=== PATIENT | male | born 1990 | race Hispanic/Latino ===

== ENCOUNTER 2021-12-15 08:01 | Emergency (ER) | payer BC ==
[2021-12-15 08:25] LABS: Absolute Lymphocytes (CBC) 3.4 K/uL (0.7-4.9); Hematocrit 42.7 % (39.6-49.0); Lymphocytes % 39.4 % (15.3-44.8); MCV 89.5 fL (80-100); MPV 7.9 fL (7.6-11.3); RBC Red Blood Cell Count 4.77 M/uL (4.33-5.43)
[2021-12-15 08:48] LABS: Potassium 3.9 mmol/L (3.5-5.1)
--- NOTE | 2021-12-15 09:21 | RAD REPORT ---
EXAM DESCRIPTION: RAD - Chest Single View - 12/15/2021 8:43 am CLINICAL HISTORY: CHEST PAIN COMPARISON: None TECHNIQUE: AP portable chest image was obtained 12/15/2021 8:43 am . FINDINGS: Lungs are clear. Heart and vasculature are normal. No measurable pleural effusion and no p neumothorax. No acute bony abnormality seen. No acute aortic findings suspected. IMPRESSION: No acute cardiopulmonary process.
--- NOTE | 2021-12-15 09:33 | EDPHYS ---
Physician Documentation [facility] Name: Pro Guillermo Age: 31 yrs Sex: Male : 1990 Arrival Date: 12/15/2021 Time: 08:02 Bed 16 Private MD: Morgan Lindsay B ED Physician Fabio Pak HPI: 12/15 10:43 This 31 yrs old Male presents to ER via Ambulatory with complaints of Chest kb Tightness, Dizziness, Palpitations. 10:43 The patient or guardian reports chest pain that is located primarily in the anterior kb chest wall, bilaterally. The pain does not radiate. Associated signs and symptoms: Pertinent positives: palpitations. The chest pain is described as tightness. Duration: The patient or guardian reports a single episode. Modifying factors: The symptoms are alleviated by nothing. the symptoms are aggravated by nothing. Severity of pain: At its worst the pain was moderate in the emergency department the pain is unchanged. The patient has not experienced similar symptoms in the past. The patient has not recently seen a physician. Pt reports he started feeling like his heart was racing after drinking coffee this morning, then felt some chest tightness. States the symptoms got worse the more he thought about it so he came in to get checked out. Historical: - Allergies: 08:16 No Known Allergies; iw - Home Meds: 08:16 None [Active]; iw - PMHx: 08:16 None; iw - Immunization history:: Adult Immunizations up to date. - Social history:: Smoking status: Patient denies any tobacco usage or history of. ROS: 10:42 Constitutional: Negative for fever, chills, and weight loss. kb 10:42 Cardiovascular: Positive for chest pain, palpitations, Negative for edema, orthopnea, paroxysmal nocturnal dyspnea. 10:42 All other systems are negative. Exam: 08:21 Constitutional: This is a well developed, well nourished patient who is awake, alert, kb and in no acute distress. Head/Face: Normocephalic, atraumatic. ENT: Moist Mucous membranes Cardiovascular: Regular rate and rhythm with a normal S1 and S2. No gallops, murmurs, or rubs. No pulse deficits. Respiratory: Respirations even and unlabored. No increased work of breathing. Talking in full sentences Abdomen/GI: Soft, non-tender. No distention Skin: Warm, dry with normal turgor. Normal color. MS/ Extremity: Pulses equal, no cyanosis. Neurovascular intact. Full, normal range of motion. Neuro: Awake and alert, GCS 15, oriented to person, place, time, and situation. Moves all extremities. Normal gait. Psych: Awake, alert, with orientation to person, place and time. Behavior, mood, and affect are within normal limits. 08:21 ECG was reviewed by the Attending Physician. Vital Signs: 08:15 BP 143 / 101; Pulse 93; Resp 16; Pulse Ox 99% on R/A; iw 09:00 BP 119 / 72; Pulse 76; Resp 16; Pulse Ox 100% ; jh6 09:32 BP 116 / 82; kb 09:36 BP 108 / 70; Pulse 80; Resp 16; Temp 97.6; Pulse Ox 100% ; Pain 0/10; jh6 MDM: 08:04 Patient medically screened. kb 09:23 Data reviewed: vital signs, nurses notes. Data interpreted: Pulse oximetry: on room air kb is 99 %. Interpretation: normal. 09:23 HEART Score: History: Slightly Suspicious (0), ECG: Normal (0), Age: < or = 45 years kb (0), Risk Factors: 1 or 2 risk factors (1), [Hypertension] Troponin: < or = 1 x Normal Limit (0). 09:32 Counseling: I had a detailed discussion with the patient and/or guardian regarding: the kb historical points, exam findings, and any diagnostic results supporting the discharge/admit diagnosis, lab results, radiology results, the need for outpatient follow up, a family practitioner, to return to the emergency department if symptoms worsen or persist or if there are any questions or concerns that arise at home. ED course: Pt states he is feeling better now. Symptoms have resolved. . 12/15 08:11 Order name: Basic Metabolic Panel; Complete Time: 08:50 kb 12/15 08:11 Order name: CBC with Diff; Complete Time: 08:50 kb 12/15 08:11 Order name: Troponin HS; Complete Time: 08:50 kb 12/15 08:11 Order name: XRAY Chest (1 view); Complete Time: 09:23 kb 12/15 08:11 Order name: EKG; Complete Time: 08:12 kb 12/15 08:11 Order name: Cardiac monitoring 12/15 08:11 Order name: EKG - Nurse/Tech 12/15 08:11 Order name: IV Saline Lock 12/15 08:11 Order name: Labs collected and sent 12/15 08:11 Order name: O2 Per Protocol 12/15 08:11 Order name: O2 Sat Monitoring EC:21 Rate is 73 beats/min. Rhythm is regular. QRS [place] is Normal. OK interval is normal at kb 144 msec. QRS interval is normal at 86 msec. QT interval is normal at 366 msec. Administered Medications: No medications were administered Disposition: 22:27 Co-signature as Attending Physician, Fabio Pak DO I was immediately available on-site ms3 in the Emergency Department for consultation in the care of the patient. . Disposition Summary: 12/15/21 09:32 Discharge Ordered Location: Home kb Condition: Stable kb Diagnosis - Palpitations kb Followup: kb - With: Emergency Department - When: As needed - Reason: Worsening of condition Followup: kb - With: Private Physician - When: 2 - 3 days - Reason: Recheck today's complaints, Continuance of care, Re-evaluation by your physician Discharge Instructions: - Discharge Summary Sheet kb - Nonspecific Chest Pain, Adult, [id number] kb - Hypertension, Adult, [id number] kb - Palpitations, [id number] kb Forms: - Medication Reconciliation Form kb - Thank You Letter kb - Antibiotic Education kb - Prescription Opioid Use kb Signatures: Dispatcher [employer] EDAngeal Adams, CRYSTAL-C LIGHT ARMORED RECONNAISSANCE OFFICER-aCndi Alvarez, RN Fabio Vu DO DO ms3 Jennifer Meyers RN RN jh6
--- NOTE | 2021-12-15 09:33 | ER ---
Nurse's Notes [facility] Name: Pro Guillermo Age: 31 yrs Sex: Male : 1990 Arrival Date: 12/15/2021 Time: 08:02 Bed 16 Private MD: Morgan Lindsay B Diagnosis: Palpitations Presentation: 12/15 08:15 Chief complaint: Patient states: chest tightness, dizziness palpitations since 0700 iw this morning. Coronavirus screen: At this time, the client does not indicate any symptoms associated with coronavirus-19. Ebola Screen: Patient negative for fever greater than or equal to 101.5 degrees Fahrenheit, and additional compatible Ebola Virus Disease symptoms Patient denies exposure to infectious person. Patient denies travel to an Ebola-affected area in the 21 days before illness onset. No symptoms or risks identified at this time. Initial Sepsis Screen: Does the patient meet any 2 criteria? No. Patient's initial sepsis screen is negative. Does the patient have a suspected source of infection? No. Patient's initial sepsis screen is negative. Risk Assessment: Do you want to hurt yourself or someone else? Patient reports no desire to harm self or others. Onset of symptoms was December 15, 2021. 08:15 Method Of Arrival: Ambulatory iw 08:15 Acuity: VAHID 3 iw Historical: - Allergies: 08:16 No Known Allergies; iw - Home Meds: 08:16 None [Active]; iw - PMHx: 08:16 None; iw - Immunization history:: Adult Immunizations up to date. - Social history:: Smoking status: Patient denies any tobacco usage or history of. Screenin:20 Abuse screen: Denies threats or abuse. Denies injuries from another. [facility] 08:20 Nutritional screening: No deficits noted. Tuberculosis screening: No symptoms or risk [facility] factors identified. Fall Risk IV access (20 points). Assessment: 08:30 General: Appears in no apparent distress. Behavior is calm, cooperative. 6 08:30 Pain: Denies pain. 6 08:30 Neuro: Level of Consciousness is awake, alert, obeys commands, Oriented to person, 6 place, time, situation, Reports dizziness, since this am but only when he was leaning forward. 08:30 Pain: Pain began suddenly, 2 hours ago. jh6 09:36 Reassessment: Patient and/or family updated on plan of care and expected duration. Pain jh6 level reassessed. Patient is alert, oriented x 3, equal unlabored respirations, skin warm/dry/pink. Patient denies pain at this time. Patient states feeling better. Pain: Denies pain. Cardiovascular: No deficits noted. 09:40 Reassessment: pt stating that he is feeling much better no dizziness noted with jh6 standing or leaning forward. Vital Signs: 08:15 BP 143 / 101; Pulse 93; Resp 16; Pulse Ox 99% on R/A; iw 09:00 BP 119 / 72; Pulse 76; Resp 16; Pulse Ox 100% ; jh6 09:32 BP 116 / 82; kb 09:36 BP 108 / 70; Pulse 80; Resp 16; Temp 97.6; Pulse Ox 100% ; Pain 0/10; jh6 ED Course: 08:02 Patient arrived in ED. mr 08:02 Morgan Lindsay MD is Private Physician. mr 08:04 [facility]C [facility] kb 08:04 Fabio Pak DO is Attending Physician. kb 08:15 Triage completed. iw 08:15 Arm band placed on. iw 08:30 Bed in low position. Call light in reach. Side rails up X 1. jh6 08:30 Client placed on continuous cardiac and pulse oximetry monitoring. NIBP monitoring jh6 applied. machine repairman on. Pulse ox on. NIBP on. 08:30 Inserted saline lock: 20 gauge in left antecubital area, using aseptic technique. Blood jh6 collected. 08:30 No provider procedures requiring assistance completed. jh6 08:45 XRAY Chest (1 view) In Process Unspecified. EDMS 08:54 Jennifer Meyers, RN is Primary Nurse. jh6 09:40 IV discontinued, intact, bleeding controlled, No redness/swelling at site. Pressure jh6 dressing applied. Administered Medications: No medications were administered Outcome: 09:32 Discharge ordered by . kb 09:47 Discharged to home ambulatory. jh6 09:47 Condition: improved 09:47 Discharge instructions given to patient, Instructed on discharge instructions, follow up and referral plans. Demonstrated understanding of instructions, follow-up care. 09:48 Patient left the ED. jh6 Signatures: Dispatcher [employer] EDMS Ricky Millardistin, SHAREPOINT ENGINEER-C SHAREPOINT ENGINEER-Guzmanb Mariluz Morrissey Irene, RN RN iw Jennifer Meyers RN RN jh6
[2021-12-15 10:15] VITALS: O2SAT 100
[2021-12-15 10:17] VITALS: BP 108/70; TEMP 97.6
--- NOTE | 2021-12-16 11:10 | EKG ---
Test Date: 2021-12-15 Test Time: 08:07:57 Holiday Detector Operator: JAKE MEASUREMENT RESULTS: Intervals: Rate: 73 WI: 144 QRSD: 86 QT: 366 QTc: 403 [place]: P: 65 WI: 144 QRS: 68 T: 59 INTERPRETIVE STATEMENTS: Normal sinus rhythm Normal ECG No previous ECG available for comparison Electronically Signed On 12-16-21 11:06:57 CDT by Will Cooper
== END 2021-12-15 09:48 | disposition home or self-care (01) ==
LOC: ER 08:01
DX: R00.2 Palpitations (principal); R07.89 Other chest pain
CPT/HCPCS: 36415; 71045; 80048; 84484; 85025; 93005; 99284